=== PATIENT | female | born 1950 | race Hispanic/Latino ===

== ENCOUNTER 2017-10-31 16:09 | Emergency (ER) | payer OTHER ==
[~2017-10-31 16:09] MED LIST: ATOR20TA65 PO; BETH50TA PO; CARI350T26 PO; CARV6.25 PO; CLON0.5T12 PO; LOSA100T29 PO; MELO-108 PO; PREG75 PO; PROG100C6 PO; SERT50TA12 PO; bi-est SQ
[2017-10-31] MEDS ORDERED: LIDOCAINE HCL 2% VISCOUS 15 ML UDCUP ONE (16:34)
[2017-10-31] MEDS ORDERED: MAG HYDROX/AL HYDROX/SIMETH ES 30 ML SUSP UDCUP ONE ×2 (16:34→16:40)
[2017-10-31 16:53] LABS: POTASSIUM 3.3 mmol/L (3.5-5.1)
[2017-10-31 16:59] LABS: BASOPHILS % (AUTO) 0.4 % (0.0-5.0); EOSINOPHILS % (AUTO) 0.6 % (0.0-8.0); LYMPHOCYTES % (AUTO) 25.4 % (21.0-51.0); MEAN CORPUSCULAR HEMOGLOBIN 31.2 pg (27.0-33.0); MEAN CORPUSCULAR HGB CONC 34.7 g/dL (32.0-36.0); MEAN CORPUSCULAR VOLUME 89.7 fL (79-99); MONOCYTES % (AUTO) 7.8 % (3.0-13.0); NEUTROPHILS % (AUTO) 65.8 % (40.0-77.0); NUCLEATED RED BLOOD CELLS 0.1 % (0.0-0.19); PLATELET COUNT (AUTO) 352 K/uL (130-400); RED BLOOD CELL COUNT(AUTO) 4.57 MIL/uL (4.00-5.50); RED CELL DISTRIBUTION WIDTH 13.3 % (11.0-15.5); WHITE BLOOD COUNT (AUTO) 4.9 K/uL (4.8-10.8)
[2017-10-31 17:06] LABS: ALBUMIN 4.3 g/dL (3.5-5.0); BILIRUBIN,TOTAL 0.7 mg/dL (0.2-1.0); TOTAL PROTEIN, SERUM 7.4 g/dL (6.0-8.3)
== END 2017-10-31 17:58 | disposition home or self-care (01) ==
LOC: EDH 16:09
DX: R10.13 Epigastric pain (principal); I10 Essential (primary) hypertension; E78.00 Pure hypercholesterolemia, unspecified; M79.7 Fibromyalgia; Z98.51 Tubal ligation status; Z88.0 Allergy status to penicillin; Z88.5 Allergy status to narcotic agent; Z88.6 Allergy status to analgesic agent
CPT/HCPCS: 36415; 76705; 80053; 83690; 84484; 85025; 93005

== ENCOUNTER 2018-09-27 14:00 | Observation (INO) | payer OTHER ==
[~2018-09-27] VITALS: Ht 162.6 cm; Wt 67.4 kg
[~2018-09-27 14:00] MED LIST changes: -LOSA100T29 PO; +LOSA100T58 PO
[2018-09-27 15:55] VITALS: BP 182/97
[2018-09-28] VITALS (19 sets, daily range): BP systolic 112–141; BP diastolic 64–85
[2018-09-28] MEDS ORDERED: LACTATED RINGERS 1000ML 1,000 ML IV ONE (09:39)
[2018-09-28] MEDS ORDERED: CARV12.511 PO (09:41)
[2018-09-28] MEDS ORDERED: PANT40TA25 PO (09:43)
[2018-09-28] MEDS ORDERED: MV,C400T3 PO (09:46)
[2018-09-28] MEDS ORDERED: MAG-136 PO (09:47)
[2018-09-28] MEDS ORDERED: CALDOLOR 800MG+NS 250ML 250 ML IV ONE (09:51)
[2018-09-28] MEDS: CLINDAMYCIN 600 MG/D5% WATER 50 ML IV PRN ×2 (09:52→10:40)
[2018-09-28] MEDS ORDERED: DURAMORPH PF1 MG/ML 10ML AMP IV ONE (09:53)
[2018-09-28] MEDS ORDERED: FENTANYL CITRATE PF 50 MCG/1 ML 2ML VIAL ONE (09:54)
[2018-09-28] MEDS ORDERED: LIDOCAINE PF 2% 5ML ABBOJECT ONE (10:00)
[2018-09-28] MEDS ORDERED: PROPOFOL 10 MG/ML 20ML VIAL IV ONE (10:00)
[2018-09-28] MEDS ORDERED: ROCURONIUM 10MG/1ML SYR 10 MG/ML ML ONE (10:00)
[2018-09-28] MEDS ORDERED: MIDAZOLAM HCL 1 MG/ML 2ML VIAL ONE (10:01)
[2018-09-28] MEDS ORDERED: EPHEDRINE SULFATE 50 MG/ML AMPULE ONE (11:38)
[2018-09-28] MEDS ORDERED: GLYCOPYRROLATE 1 MG/5 ML SYRINGE ONE (12:01)
[2018-09-28] MEDS ORDERED: NEOSTIGMINE 5MG/5ML SYR IV ONE (12:01)
[2018-09-28] MEDS ORDERED: HYDROCODONE/ACETAMINOPHEN 5/325 MG TAB PO PRN (12:30)
[2018-09-28] MEDS ORDERED: PROMETHAZINE HCL 25 MG/ML 1ML AMPULE IM PRN ×2 (12:30)
[2018-09-28] MEDS ORDERED: TRAMADOL HCL 50 MG TABLET PO PRN (12:30)
[2018-09-28] MEDS ORDERED: IBUPROFEN 800 MG TAB PO PRN (12:30)
[2018-09-28] MEDS ORDERED: ONDANSETRON HCL 4 MG/2 ML VIAL IVP PRN (12:30)
[2018-09-28] MEDS ORDERED: SIMETHICONE 80 MG TAB.CHEW PO PRN (12:30)
[2018-09-28] MEDS ORDERED: DOCUSATE SODIUM 100 MG CAP PO PRN (12:30)
[2018-09-28] MEDS ORDERED: MEPERIDINE-PF 75 MG/ML SYG IM PRN (12:30)
[2018-09-28] MEDS ORDERED: BISACODYL 10 MG SUPP.RECT RC PRN (12:30)
[2018-09-28] MEDS: CALDOLOR 800MG+NS 250ML 250 ML IVPB SCH (20:22)
[2018-09-28] MEDS: DEXTROSE 5 %-0.45 % NACL 1,000 ML IV PRN (20:22)
[2018-09-28] MEDS ORDERED: MAG HYDROX/AL HYDROX/SIMETH ES 30 ML SUSP UDCUP PO PRN (22:00)
[2018-09-29 00:20] VITALS: BP 78/49
[2018-09-29 01:24] VITALS: BP 78/49
[2018-09-29] MEDS: CALDOLOR 800MG+NS 250ML 250 ML IVPB SCH (03:49)
--- NOTE | 2018-09-29 04:00 | NUR ---
ACTIVITY VERBALIZES WANTS TO AMBULATE, ASSISTED UP TO SIDE OF BED, TOLERATED WELL, AMBULATED IN HALLWAY Addendum: 09/29/18 at 0509 by LUANA EDWARD LVN Amended: Links added.
[2018-09-29 04:31] VITALS: BP 102/63
[2018-09-29 06:42] LABS: HEMATOCRIT 31.5 % (36-48); MEAN CORPUSCULAR HEMOGLOBIN 31.6 pg (27.0-33.0); MEAN CORPUSCULAR HGB CONC 34.6 g/dL (32.0-36.0); MEAN CORPUSCULAR VOLUME 91.2 fL (79-99); PLATELET COUNT (AUTO) 208 K/uL (130-400); RED BLOOD CELL COUNT(AUTO) 3.45 MIL/uL (4.00-5.50); RED CELL DISTRIBUTION WIDTH 13.3 % (11.0-15.5); WHITE BLOOD COUNT (AUTO) 5.9 K/uL (4.8-10.8)
[2018-09-29 07:27] VITALS: BP 100/69
[2018-09-29] MEDS ORDERED: LOSARTAN 100 MG TABLET PO SCH (09:00)
[2018-09-29] MEDS ORDERED: CARVEDILOL 12.5 MG TABLET PO SCH (09:00)
[2018-09-29] MEDS ORDERED: CLONAZEPAM 0.5 MG TABLET PO SCH (09:00)
[2018-09-29] MEDS ORDERED: SERTRALINE HCL 50 MG TABLET PO SCH (09:00)
[2018-09-29] MEDS ORDERED: PANTOPRAZOLE SODIUM 40 MG TABLET.DR PO SCH (09:00)
[2018-09-29] MEDS: PREGABALIN 75 MG CAPSULE PO SCH ×2 (09:00→14:00)
[2018-09-29] MEDS ORDERED: MELOXICAM 7.5 MG TABLET PO SCH (09:00)
--- NOTE | 2018-09-29 10:00 | NUR ---
DR. ROSE ROUNDED AND DISCHARGED PT TO HOME. SHE IS TO FOLLOW UP WITH DR. VELAZCO ON 10/09/18 AT 11:30AM
[2018-09-29] MEDS: DEXTROSE 5 %-0.45 % NACL 1,000 ML IV PRN (10:18)
[2018-09-29 11:28] VITALS: BP 116/76
[2018-09-29] MEDS ORDERED: [UNRECOGNIZED DRUG - OTHER] PO SCH (12:00)
--- NOTE | 2018-09-29 12:00 | NUR ---
PATIENT UP AND VOIDED FOR THE SECOND TIME AND IV WAS REMOVED AND IV SITE WNL.
[2018-09-29] MEDS ORDERED: IBUPROFEN 800 MG TAB PO SCH (12:30)
--- NOTE | 2018-09-29 14:20 | NUR ---
PATIENT GIVEN DISCHARGE INSTRUCTIONS AND WAS TAKEN VIA W/C TO FAMILY VEHICLE. IN STABLE CONDITION. PATIENT DENIES PAIN AND REINFORCED NEED TO CONTINUE HOME MEDS AND HOLD BP MEDS PER DR. ROSE'S ORDERS FOR A COUPLE OF DAYS.
[2018-09-29] MEDS ORDERED: ATORVASTATIN CALCIUM 20 MG TABLET PO SCH (21:00)
== END 2018-09-29 14:20 | disposition home or self-care (01) ==
LOC: EDSTATUS 14:00 → DAH 14:27 → DAHIP 09-28 08:26 → WSH 09-28 13:15
PROVIDERS: ADMIT Obstetrics & Gynecology; ATTEND Obstetrics & Gynecology
DX: N81.4 Uterovaginal prolapse, unspecified (principal); Z79.899 Other long term (current) drug therapy
CPT/HCPCS: 36415 ×2; 58263; 85027; 86850; 86900; 86901; 88302; 88305; 88307; 96365; 96366; A4351; A4510; A4600; G0378 ×31; J1741 ×4; J2001; J2250; J2274; J2704; J2710; J3010; J3490 ×3; J7030; J7120

== ENCOUNTER 2019-03-27 12:41 | Inpatient (IN) | payer OTHER ==
[~2019-03-27] VITALS: Ht 162.6 cm; Wt 65.0 kg
[~2019-03-27 12:41] MED LIST changes: -BETH50TA PO; -CARI350T26 PO; +CARV12.511 PO; -CARV6.25 PO; -CLON0.5T12 PO; +CLON0.5T4 PO; +MAG-136 PO; +MV,C400T3 PO; +PANT40TA25 PO; -PROG100C6 PO; -bi-est SQ
[2019-03-27 13:36] LABS: BASOPHILS % (AUTO) 0.4 % (0.0-5.0); EOSINOPHILS % (AUTO) 3.1 % (0.0-8.0); HEMATOCRIT 37.7 % (36-48); LYMPHOCYTES % (AUTO) 30.9 % (21.0-51.0); MEAN CORPUSCULAR HEMOGLOBIN 30.6 pg (27.0-33.0); MEAN CORPUSCULAR HGB CONC 35.4 g/dL (32.0-36.0); MEAN CORPUSCULAR VOLUME 86.4 fL (79-99); MONOCYTES % (AUTO) 10.7 % (3.0-13.0); NEUTROPHILS % (AUTO) 54.9 % (40.0-77.0); PLATELET COUNT (AUTO) 265 K/uL (130-400); RED BLOOD CELL COUNT(AUTO) 4.36 MIL/uL (4.00-5.50); WHITE BLOOD COUNT (AUTO) 3.7 K/uL (4.8-10.8)
[2019-03-27 13:49] LABS: ALBUMIN 3.9 g/dL (3.5-5.0); BILIRUBIN,TOTAL 0.6 mg/dL (0.2-1.0); CREATININE 0.9 mg/dL (0.5-1.5); POTASSIUM 3.3 mmol/L (3.5-5.1); TOTAL PROTEIN, SERUM 7.1 g/dL (6.0-8.3)
[2019-03-27 13:53] LABS: APPEARANCE,URINE Clear (CLEAR); BILIRUBIN,URINE Negative (NEGATIVE); COLOR,URINE Yellow (YELLOW); GLUCOSE, URINE (UA) Negative (NEGATIVE); KETONES,URINE Negative (NEGATIVE); LEUKOCYTE ESTERASE ,URINE Moderate (NEGATIVE); NITRATE,URINE Negative (NEGATIVE); OCCULT BLOOD,URINE Negative (NEGATIVE); PH,URINE 6.5 (5.0-8.0); PROTEIN,URINE Negative (NEGATIVE)
[2019-03-27 14:03] LABS: RBC,URINE 0-1 /HPF (0-1)
[2019-03-27 14:04] LABS: BACTERIA,URINE Rare /HPF (None Seen); SQUAMOUS EPITHELIAL CELL,UR Few /HPF (0-2)
[2019-03-27 14:11] LABS: B-TYPE NATRIURETIC PEPTIDE 27 pg/mL (0-100)
[2019-03-27] MEDS ORDERED: SODIUM CHLORIDE 0.9% 1000ML 1,000 ML IV ONE (14:23)
[2019-03-27] MEDS ORDERED: ASPIRIN 325 MG TABLET ONE (14:24)
[2019-03-27] MEDS ORDERED: POTASSIUM BICARB/CIT AC 25 MEQ TABLET.EFF ONE (15:41)
[2019-03-27] MEDS ORDERED: NITROFURANTOIN MONOHYD/M-CRYST 100 MG CAPSULE PO ONE (16:06)
[2019-03-27] MEDS ORDERED: KETOROLAC TROMETHAMINE 15MG/ML IV PRN (16:45)
[2019-03-27] MEDS ORDERED: ONDANSETRON HCL 4 MG/2 ML VIAL IVP PRN (17:30)
[2019-03-27] MEDS ORDERED: ACETAMINOPHEN 325 MG TAB PO PRN (17:30)
[2019-03-27 20:29] VITALS: BP 167/73
[2019-03-27] MEDS ORDERED: NITR100C9 PO (21:05)
[2019-03-27] MEDS ORDERED: OLME1TAB42 PO (21:05)
[2019-03-27] MEDS ORDERED: QUET25TA74 PO (21:05)
[2019-03-27] MEDS: NITROFURANTOIN MONOHYD/M-CRYST 100 MG CAPSULE PO SCH (21:50)
[2019-03-27] MEDS: FAMOTIDINE 20MG TAB 20 MG TAB PO SCH (21:51)
[2019-03-27] MEDS: SODIUM CHLORIDE 0.9% 1000ML 1,000 ML IV SCH (21:52)
[2019-03-27 23:24] VITALS: BP 148/84
[2019-03-28] MEDS: SODIUM CHLORIDE 0.9% 1000ML 1,000 ML IV SCH (02:45)
[2019-03-28 03:49] VITALS: BP 125/72
[2019-03-28 04:09] LABS: BASOPHILS % (AUTO) 0.4 % (0.0-5.0); EOSINOPHILS % (AUTO) 4.4 % (0.0-8.0); LYMPHOCYTES % (AUTO) 36.2 % (21.0-51.0); MEAN CORPUSCULAR HEMOGLOBIN 30.8 pg (27.0-33.0); MEAN CORPUSCULAR HGB CONC 35.3 g/dL (32.0-36.0); MEAN CORPUSCULAR VOLUME 87.2 fL (79-99); NUCLEATED RED BLOOD CELLS 0.1 % (0.0-0.19); PLATELET COUNT (AUTO) 247 K/uL (130-400); RED BLOOD CELL COUNT(AUTO) 4.13 MIL/uL (4.00-5.50); RED CELL DISTRIBUTION WIDTH 13.5 % (11.0-15.5); WHITE BLOOD COUNT (AUTO) 3.3 K/uL (4.8-10.8)
[2019-03-28 04:23] LABS: ALBUMIN 3.5 g/dL (3.5-5.0); BILIRUBIN,TOTAL 0.6 mg/dL (0.2-1.0); CREATININE 0.8 mg/dL (0.5-1.5); POTASSIUM 3.5 mmol/L (3.5-5.1); TOTAL PROTEIN, SERUM 6.3 g/dL (6.0-8.3)
[2019-03-28] MEDS ORDERED: CLON0.5T4 PO (07:17)
[2019-03-28] MEDS ORDERED: ASPI-1197 PO (07:17)
[2019-03-28 07:28] VITALS: BP 146/91
[2019-03-28] MEDS ORDERED: KETOROLAC TROMETHAMINE 15MG/ML IM PRN (08:45)
[2019-03-28] MEDS: FAMOTIDINE 20MG TAB 20 MG TAB PO SCH ×2 (09:00→20:47)
[2019-03-28] MEDS: OLMESARTAN PO SCH (09:00)
[2019-03-28] MEDS ORDERED: HYDRALAZINE HCL 20 MG/ML VIAL IV PRN (09:00)
[2019-03-28] MEDS: [UNRECOGNIZED DRUG - OTHER] PO SCH (09:00)
[2019-03-28] MEDS: HYDROCHLOROTHIAZIDE PO SCH (09:00)
[2019-03-28] MEDS: CARVEDILOL 12.5 MG TABLET PO SCH ×2 (10:09→20:46)
[2019-03-28] MEDS: NITROFURANTOIN MONOHYD/M-CRYST 100 MG CAPSULE PO SCH ×2 (10:09→20:46)
[2019-03-28] MEDS: ENOXAPARIN SODIUM 30 MG/0.3 ML SQ SCH (10:10)
[2019-03-28 11:36] VITALS: BP 143/84
--- NOTE | 2019-03-28 15:00 | NUR ---
CM NOTES WILL FOLLOW UP FOR INITIAL ASSESSMENT EYES CLOSED, RESP REGULAR WHEN CM VISITED ROOM Addendum: 03/28/19 at 3 by TERESA MAGALLANES RN CM Amended: Links added.
[2019-03-28] MEDS ORDERED: SODIUM CHLORIDE 0.9% 1000ML 1,000 ML IV SCH (15:19)
[2019-03-28 16:44] VITALS: BP 168/92
[2019-03-28 19:28] VITALS: BP 143/84
[2019-03-28] MEDS ORDERED: MAG HYDROX/AL HYDROX/SIMETH ES 30 ML SUSP UDCUP PO PRN (20:00)
[2019-03-28] MEDS ORDERED: PHARMACY COMMUNICATION MISC SCH (20:15)
[2019-03-28] MEDS ORDERED: PROMETHAZINE HCL 25 MG/ML 1ML AMPULE IM PRN (20:15)
[2019-03-28] MEDS ORDERED: KETOROLAC TROMETHAMINE 15MG/ML IV PRN (20:45)
[2019-03-28] MEDS ORDERED: CLONAZEPAM 0.5 MG TABLET PO SCH (21:00)
[2019-03-28] MEDS ORDERED: ATORVASTATIN CALCIUM 20 MG TABLET PO SCH (21:00)
[2019-03-28] MEDS ORDERED: QUETIAPINE FUMARATE 25 MG TAB PO SCH (21:00)
[2019-03-28 23:35] VITALS: BP 93/55
[2019-03-29 03:54] VITALS: BP 125/78
[2019-03-29 04:58] LABS: HEMATOCRIT 34.4 % (36-48); MEAN CORPUSCULAR HEMOGLOBIN 30.6 pg (27.0-33.0); MEAN CORPUSCULAR HGB CONC 34.7 g/dL (32.0-36.0); MEAN CORPUSCULAR VOLUME 88.2 fL (79-99); PLATELET COUNT (AUTO) 240 K/uL (130-400); RED CELL DISTRIBUTION WIDTH 13.6 % (11.0-15.5); WHITE BLOOD COUNT (AUTO) 4.1 K/uL (4.8-10.8)
[2019-03-29 05:03] LABS: CREATININE 0.9 mg/dL (0.5-1.5); POTASSIUM 3.2 mmol/L (3.5-5.1)
[2019-03-29 08:04] VITALS: BP 159/96
[2019-03-29] MEDS: [UNRECOGNIZED DRUG - OTHER] PO SCH (09:00)
[2019-03-29] MEDS: OLMESARTAN PO SCH (09:00)
[2019-03-29] MEDS: HYDROCHLOROTHIAZIDE PO SCH (09:00)
[2019-03-29] MEDS: CARVEDILOL 12.5 MG TABLET PO SCH (09:57)
[2019-03-29] MEDS: FAMOTIDINE 20MG TAB 20 MG TAB PO SCH (09:57)
[2019-03-29] MEDS: NITROFURANTOIN MONOHYD/M-CRYST 100 MG CAPSULE PO SCH (09:57)
[2019-03-29] MEDS: ENOXAPARIN SODIUM 30 MG/0.3 ML SQ SCH (10:01)
--- NOTE | 2019-03-29 11:30 | NUR ---
INIITAL MET W PATIENT AND SPOUSE- PT STATES FELL BUT DOES NOT REMEMBER; HYPONATREMIA ON ADMIT FX ANKLE WILL FOLLOWUP W DR. CASIANO NEXT WEEK FOR POSS SURGERY, PT WAS INPD, DRIVES, NO DME, WILL NEED CRUTCHES OR WALKER PRIOR TO DISCHARGE- NWB TO FOOT. VERBAL CONSENT FOR WHATEVER DME TAKES HER INSURANCE- Addendum: 03/29/19 at 1326 by TERESA MAGALLANES RN CM Amended: Links added.
[2019-03-29 12:00] VITALS: BP 153/88
--- NOTE | 2019-03-29 12:12 | NUR ---
i asked pt if she is allergic to potassium because it is on her list of allergies and she stated no, that she is allergic to potassium dichromate an industrial work related product; she stated she has taken potassim supplements before with no problem
[2019-03-29] MEDS ORDERED: POTASSIUM CHLORIDE 20 MEQ ERTAB PO PRN (12:15)
[2019-03-29] MEDS ORDERED: POTASSIUM CHLORIDE 20MEQ/100ML 100 ML IV PRN (12:15)
[2019-03-29] MEDS ORDERED: POTASSIUM CHLORIDE 10% ELIXIR 20 MEQ/15 ML UDCUP PO PRN (12:15)
[2019-03-29] MEDS ORDERED: LIDOCAINE HCL-MPF 1% 2ML VIAL IV PRN (12:15)
--- NOTE | 2019-03-29 15:08 | NUR ---
PT STATES BORROWING WALKER FROM FAMILY
[2019-03-29 16:00] VITALS: BP 142/93
[2019-03-29] MEDS ORDERED: POTASSIUM CHLORIDE 20 MEQ ERTAB PO SCH (16:30)
--- NOTE | 2019-03-29 17:00 | NUR ---
dr Kar Gaona came to see pt on follow up and he stated from his stand point pt is ok to be discharged home, that her 2d echo is normal; i have called BANKER [facility]ON Hazel from hospitalist and she stated she would then enter d/c orders.
[2019-03-29] MEDS ORDERED: NITR100C4 PO (17:26)
== END 2019-03-29 19:03 | disposition home or self-care (01) | DRG 312 ==
LOC: EDH 12:41 → EDHIP 16:45 → 4BH 20:42
PROVIDERS: ADMIT Hospitalist; ATTEND Hospitalist
DX: R55 Syncope and collapse (principal); E87.1 Hypo-osmolality and hyponatremia; N39.0 Urinary tract infection, site not specified; S82.831A Other fracture of upper and lower end of right fibula, initial encounter for closed fracture; E87.6 Hypokalemia; E78.5 Hyperlipidemia, unspecified; I10 Essential (primary) hypertension; M79.7 Fibromyalgia; F41.9 Anxiety disorder, unspecified; E78.00 Pure hypercholesterolemia, unspecified; E07.9 Disorder of thyroid, unspecified; W18.39XA Other fall on same level, initial encounter; Z80.0 Family history of malignant neoplasm of digestive organs; Z82.49 Family history of ischemic heart disease and other diseases of the circulatory system; Z90.710 Acquired absence of both cervix and uterus; Z88.1 Allergy status to other antibiotic agents; Z88.0 Allergy status to penicillin; Z88.8 Allergy status to other drugs, medicaments and biological substances; Y93.89 Activity, other specified; Y92.89 Other specified places as the place of occurrence of the external cause; Y99.8 Other external cause status
CPT/HCPCS: 36415; 70450; 71045; 73610; 76536; 80048; 80053; 81001; 82550; 83735; 83880; 84295; 84484; 85025; 85027; 87088; 93005; 93306; 93880; G0378; J0360; J1650; J1885; J2405; J7030

== ENCOUNTER 2020-07-03 16:00 | Emergency (ER) | payer OTHER ==
[~2020-07-03 16:00] MED LIST changes: +ASPI-1197 PO; -CLON0.5T4 PO; -LOSA100T58 PO; -MAG-136 PO; -MV,C400T3 PO; +OLME-9 PO; -PANT40TA25 PO; +PANT40TA54 PO; +QUET25TA74 PO
[2020-07-03] MEDS ORDERED: SODIUM CHLORIDE 0.9% 1000ML 1,000 ML IV ONE (17:09)
[2020-07-03] MEDS ORDERED: ACETAMINOPHEN 325 MG TAB ONE (17:09)
[2020-07-03] MEDS ORDERED: ONDANSETRON HCL 4 MG/2 ML VIAL ONE (17:09)
[2020-07-03 17:37] LABS: BASOPHILS % (AUTO) 0.2 % (0.0-5.0); EOSINOPHILS % (AUTO) 0.2 % (0.0-8.0); HEMATOCRIT 36.7 % (36-48); LYMPHOCYTES % (AUTO) 23.5 % (21.0-51.0); MEAN CORPUSCULAR HEMOGLOBIN 30.9 pg (27.0-33.0); MEAN CORPUSCULAR HGB CONC 35.1 g/dL (32.0-36.0); MEAN CORPUSCULAR VOLUME 87.8 fL (79-99); MONOCYTES % (AUTO) 9.5 % (3.0-13.0); NEUTROPHILS % (AUTO) 66.4 % (40.0-77.0); PLATELET COUNT (AUTO) 282 K/uL (130-400); RED BLOOD CELL COUNT(AUTO) 4.18 MIL/uL (4.00-5.50); RED CELL DISTRIBUTION WIDTH 13.4 % (11.0-15.5); WHITE BLOOD COUNT (AUTO) 4.6 K/uL (4.8-10.8)
[2020-07-03 17:50] LABS: CREATININE 0.9 mg/dL (0.5-1.5); POTASSIUM 3.3 mmol/L (3.5-5.1)
[2020-07-03 17:54] LABS: ALBUMIN 3.9 g/dL (3.5-5.0); BILIRUBIN,TOTAL 0.6 mg/dL (0.2-1.0); TOTAL PROTEIN, SERUM 7.2 g/dL (6.0-8.3)
[2020-07-03] MEDS ORDERED: IOHEXOL-350 75 ML VIAL IV ONE (18:10)
[2020-07-03 19:28] LABS: APPEARANCE,URINE Clear (CLEAR); BILIRUBIN,URINE Negative (NEGATIVE); COLOR,URINE Yellow (YELLOW); GLUCOSE, URINE (UA) Negative (NEGATIVE); KETONES,URINE 15 mg/dL (NEGATIVE); LEUKOCYTE ESTERASE ,URINE Trace (NEGATIVE); NITRATE,URINE Negative (NEGATIVE); OCCULT BLOOD,URINE Trace (NEGATIVE); PH,URINE 6.5 (5.0-8.0); PROTEIN,URINE Negative (NEGATIVE); UROBILINOGEN,URINE 0.2 mg/dL (0.2-1.0)
[2020-07-03 20:00] LABS: BACTERIA,URINE Few /HPF (None Seen); MUCUS,URINE Few LPF (None Seen); SQUAMOUS EPITHELIAL CELL,UR Moderate /HPF (0-2)
[2020-07-03] MEDS ORDERED: SULFAMETHOX-TMP DS 800/160 TAB ONE (20:38)
== END 2020-07-03 20:46 | disposition home or self-care (01) ==
LOC: EDH 16:00
DX: N39.0 Urinary tract infection, site not specified (principal); F41.9 Anxiety disorder, unspecified; I10 Essential (primary) hypertension; Z90.49 Acquired absence of other specified parts of digestive tract; Z90.710 Acquired absence of both cervix and uterus; Z88.0 Allergy status to penicillin; Z88.1 Allergy status to other antibiotic agents; Z88.8 Allergy status to other drugs, medicaments and biological substances; Z88.6 Allergy status to analgesic agent; Z88.2 Allergy status to sulfonamides
CPT/HCPCS: 36415; 74177; 76705; 80053; 81001; 82550; 83605; 83690; 84484; 85025; 87040 ×2; 93005; 96361; 96374; 99285; J2405; J7030; Q9967